=== PATIENT | female | born 1990 | race Caucasian/White ===

== ENCOUNTER 2016-05-27 10:13 | Emergency (ER) | payer MEDICAID, OTHER ==
[~2016-05-27] VITALS: Ht 160 cm; Wt 83.3 kg
[~2016-05-27 10:13] MED LIST: CHOL500014 PO; METF10002 PO; OXYC-302 PO
[2016-05-27] MEDS ORDERED: SODIUM CHLORIDE 0.9% 1,000 ML IV ONE (10:34)
[2016-05-27] MEDS ORDERED: LORazepam 2 MG/ML, 1ML ONE (10:44)
[2016-05-27] MEDS ORDERED: SODIUM CHLORIDE 0.9% 1,000ML IVBOLUS ONE (11:00)
[2016-05-27] MEDS ORDERED: LORazepam 2 MG/ML, 1ML IVPush ONE (11:00)
[2016-05-27 11:11] LABS: HEMOGLOBIN 15.3 g/dL (11.7-16.4)
[2016-05-27 11:23] LABS: BLOOD UREA NITROGEN 9 mg/dL (7-18)
[2016-05-27 12:11] VITALS: BP 111/50
== END 2016-05-27 12:14 | disposition home or self-care (01) ==
LOC: ED 11:50
DX: R56.9 Unspecified convulsions (principal)
CPT/HCPCS: 36415; 70450; 80048; 82040; 82550; 85025; 93005; 96361; 96374; 99285; J2060; J7030

== ENCOUNTER 2016-12-04 10:41 | Emergency (ER) | payer MEDICAID ==
[~2016-12-04] VITALS: Ht 160 cm; Wt 80.0 kg
[~2016-12-04 10:41] MED LIST changes: -CHOL500014 PO; +CHOL500045 PO
[2016-12-04] MEDS ORDERED: SODIUM CHLORIDE 0.9% 1,000 ML IV ONE (11:11)
[2016-12-04] MEDS ORDERED: ONDANSETRON 2MG/ML, 2ML ONE (11:22)
[2016-12-04] MEDS ORDERED: SODIUM CHLORIDE 0.9% 1,000ML IVBOLUS ONE (11:30)
[2016-12-04] MEDS ORDERED: SODIUM CHLORIDE FLUSH 10ML SYR IVF ONE (11:30)
[2016-12-04] MEDS ORDERED: ONDANSETRON 2MG/ML, 2ML IVPush ONE (11:30)
[2016-12-04 11:44] LABS: HEMATOCRIT 41.6 % (34.6-47.8); HEMOGLOBIN 14.3 g/dL (11.7-16.4); WHITE BLOOD COUNT 4.2 x10^3/uL (3.4-10)
[2016-12-04 11:47] LABS: RAPID INFLUENZA A Negative (Negative); RAPID INFLUENZA B Negative (Negative)
[2016-12-04 11:56] LABS: ASPARTATE AMINO TRANSFERASE 9 U/L (15-37); BLOOD UREA NITROGEN 10 mg/dL (7-18)
[2016-12-04 13:20] VITALS: BP 102/64
== END 2016-12-04 14:31 | disposition home or self-care (01) ==
LOC: ED 11:48
DX: J01.00 Acute maxillary sinusitis, unspecified (principal); N30.90 Cystitis, unspecified without hematuria; R11.2 Nausea with vomiting, unspecified; G43.909 Migraine, unspecified, not intractable, without status migrainosus
CPT/HCPCS: 36415; 71020; 80053; 81001; 84703; 85025; 87086; 87400; 96361; 96374; 99285; J2405; J7030

== ENCOUNTER 2016-12-12 13:28 | Emergency (ER) | payer MEDICAID ==
[~2016-12-12] VITALS: Ht 157.5 cm; Wt 80.7 kg
[2016-12-12] MEDS ORDERED: ETON68IM3 IMPLANT (14:03)
[2016-12-12 14:20] LABS: HEMATOCRIT 43.7 % (34.6-47.8); HEMOGLOBIN 14.9 g/dL (11.7-16.4); WHITE BLOOD COUNT 7.2 x10^3/uL (3.4-10)
[2016-12-12 14:33] LABS: BLOOD UREA NITROGEN 9 mg/dL (7-18)
[2016-12-12 15:18] VITALS: BP 100/63
== END 2016-12-12 15:21 | disposition home or self-care (01) ==
LOC: ED 15:15
DX: S46.911A Strain of unspecified muscle, fascia and tendon at shoulder and upper arm level, right arm, initial encounter (principal); G40.909 Epilepsy, unspecified, not intractable, without status epilepticus; G43.909 Migraine, unspecified, not intractable, without status migrainosus; W18.39XA Other fall on same level, initial encounter; Y93.G3 Activity, cooking and baking; Y92.000 Kitchen of unspecified non-institutional (private) residence as the place of occurrence of the external cause; Y99.8 Other external cause status
CPT/HCPCS: 36415; 72050; 80048; 82040; 85025; 99285

== ENCOUNTER 2016-12-27 09:35 | Emergency (ER) | payer MEDICAID ==
[~2016-12-27] VITALS: Ht 160 cm; Wt 78.8 kg
[~2016-12-27 09:35] MED LIST changes: +ETON68IM3 IMPLANT
[2016-12-27] MEDS ORDERED: LORazepam 2 MG/ML, 1ML IVPush ONE (10:30)
[2016-12-27] MEDS ORDERED: KETOROLAC 30 MG/1 ML IVPush ONE (10:30)
[2016-12-27] MEDS ORDERED: PROMETHAZINE 25 MG/ML, 1ML IM ONE (10:30)
[2016-12-27] MEDS ORDERED: DIPHENHYDRAMINE 50 MG/ML, 1ML IVPush ONE (10:30)
[2016-12-27] MEDS ORDERED: DIPHENHYDRAMINE 50 MG/ML, 1ML ONE (10:52)
[2016-12-27] MEDS ORDERED: PROMETHAZINE 25 MG/ML, 1ML ONE (10:52)
[2016-12-27] MEDS ORDERED: KETOROLAC 30 MG/1 ML ONE (10:52)
[2016-12-27] MEDS ORDERED: LORazepam 2 MG/ML, 1ML ONE (10:54)
[2016-12-27 11:17] LABS: HEMATOCRIT 43.6 % (34.6-47.8); HEMOGLOBIN 14.9 g/dL (11.7-16.4); WHITE BLOOD COUNT 6.9 x10^3/uL (3.4-10)
[2016-12-27 11:31] LABS: ASPARTATE AMINO TRANSFERASE 14 U/L (15-37); BLOOD UREA NITROGEN 7 mg/dL (7-18)
[2016-12-27 11:40] LABS: HCG UR LOT HCG7030192
[2016-12-27 11:46] LABS: HCG UR OBC PASS
[2016-12-27 13:20] VITALS: BP 132/68
== END 2016-12-27 13:23 | disposition home or self-care (01) ==
LOC: ED 10:34
DX: G40.909 Epilepsy, unspecified, not intractable, without status epilepticus (principal); G43.909 Migraine, unspecified, not intractable, without status migrainosus; Z90.49 Acquired absence of other specified parts of digestive tract
CPT/HCPCS: 36415; 80053; 81001; 81025; 85025; 87086; 96372; 96374; 96375; 99284; J1200; J1885; J2060; J2550

== ENCOUNTER 2017-01-15 19:06 | Emergency (ER) | payer MEDICAID ==
[~2017-01-15] VITALS: Ht 160 cm; Wt 78.5 kg
[~2017-01-15 19:06] MED LIST changes: +LEVE100S6 PO
[2017-01-15 19:31] LABS: HEMATOCRIT 44.7 % (34.6-47.8); HEMOGLOBIN 15.3 g/dL (11.7-16.4); WHITE BLOOD COUNT 7.3 x10^3/uL (3.4-10)
[2017-01-15 19:40] LABS: BLOOD UREA NITROGEN 11 mg/dL (7-18)
[2017-01-15 20:53] VITALS: BP 102/64
== END 2017-01-15 20:55 | disposition home or self-care (01) ==
LOC: ED 20:36
DX: R19.7 Diarrhea, unspecified (principal); G43.909 Migraine, unspecified, not intractable, without status migrainosus
CPT/HCPCS: 36415; 72110; 80048; 82040; 85025; 99285

== ENCOUNTER → 2017-01-31 | Outpatient (CLI) | payer MEDICAID | END | disposition home or self-care (01) | LOC: CFH 08:46 | PROVIDERS: ATTEND Family Medicine | DX: Z32.02 Encounter for pregnancy test, result negative (principal); R10.9 Unspecified abdominal pain | CPT/HCPCS: 76830 ==

== ENCOUNTER 2017-12-16 22:08 | Emergency (ER) | payer MEDICAID ==
[~2017-12-16] VITALS: Ht 160 cm; Wt 70.0 kg
[2017-12-16] MEDS ORDERED: LORazepam 2 MG/ML, 1ML IVPush ONE (22:30)
[2017-12-16] MEDS ORDERED: SODIUM CHLORIDE FLUSH 10ML SYR IVF ONE (22:30)
[2017-12-16] MEDS ORDERED: LORazepam 2 MG/ML, 1ML ONE (22:39)
[2017-12-16 22:44] LABS: BASOPHILS # (AUTO) 0.02 x10^3/uL (0-0.1); BASOPHILS % (AUTO) 0 % (0-1); EOSINOPHILS # (AUTO) 0.06 x10^3/uL (0-0.4); EOSINOPHILS % (AUTO) 1 % (1-7); LYMPHOCYTES # (AUTO) 1.71 x10^3/uL (1-3.4); LYMPHOCYTES % (AUTO) 17 % (22-44); MD NO; MEAN CORPUSCULAR HEMOGLOBIN 32.7 pg (27.0-34.8); MEAN CORPUSCULAR HGB CONC 34.3 g/dL (32.4-35.8); MEAN CORPUSCULAR VOLUME 95.3 fL (80-100); MEAN PLATELET VOLUME 8.2 fL (7.4-10.4); MONOCYTES # (AUTO) 0.69 x10^3/uL (0.2-0.8); MONOCYTES % (AUTO) 7 % (2-9); NEUTROPHILS # (AUTO) 7.48 x10^3/uL (1.8-6.8); NEUTROPHILS % (AUTO) 75 % (42-75); PLATELET COUNT 292 x10^3/uL (130-400); RED BLOOD COUNT 4.63 x10^6/uL (3.82-5.3); RED CELL DISTRIBUTION WIDTH 12.7 % (9.6-15.2)
[2017-12-16 22:55] LABS: ALANINE AMINOTRANSFERASE 24 U/L (12-78); ALBUMIN 3.8 g/dL (3.4-5.0); ANION GAP 6 mmol/L (5-15); CALCIUM 8.6 mg/dL (8.5-10.1); CHLORIDE 109 mmol/L (98-107); CREATININE 0.69 mg/dL (0.55-1.02)
[2017-12-16 22:59] LABS: ALKALINE PHOSPHATASE 69 U/L (45-117); BILIRUBIN,TOTAL 0.5 mg/dL (0.2-1.0); TOTAL PROTEIN 7.1 g/dL (6.4-8.2)
[2017-12-16 23:39] VITALS: BP 117/62
[2017-12-16 23:46] LABS: MICROSCOPIC NOT IND
[2017-12-16 23:53] LABS: CULTURE INDICATED? NO
== END 2017-12-16 23:53 | disposition home or self-care (01) ==
LOC: ED 23:20
DX: G40.209 Localization-related (focal) (partial) symptomatic epilepsy and epileptic syndromes with complex partial seizures, not intractable, without status epilepticus (principal)
CPT/HCPCS: 36415; 80053; 81003; 84703; 85025; 96374; 99284; J2060

== ENCOUNTER 2017-12-19 12:21 | Emergency (ER) | payer MEDICAID ==
[~2017-12-19] VITALS: Ht 160 cm; Wt 67.0 kg
[2017-12-19] MEDS ORDERED: KETOROLAC 30 MG/1 ML IVPush ONE (13:00)
[2017-12-19] MEDS ORDERED: SODIUM CHLORIDE 0.9% 1,000ML IVBOLUS ONE (13:00)
[2017-12-19] MEDS ORDERED: DIPHENHYDRAMINE 50 MG/ML, 1ML IVPush ONE (13:00)
[2017-12-19] MEDS ORDERED: METOCLOPRAMIDE 5 MG/ML, 2ML IVPush ONE (13:00)
[2017-12-19] MEDS ORDERED: SODIUM CHLORIDE FLUSH 10ML SYR IVF ONE (13:00)
[2017-12-19] MEDS ORDERED: DIPHENHYDRAMINE 50 MG/ML, 1ML ONE (13:04)
[2017-12-19] MEDS ORDERED: KETOROLAC 30 MG/1 ML ONE (13:04)
[2017-12-19] MEDS ORDERED: METOCLOPRAMIDE 5 MG/ML, 2ML ONE (13:04)
[2017-12-19 13:10] LABS: BASOPHILS # (AUTO) 0.01 x10^3/uL (0-0.1); BASOPHILS % (AUTO) 0 % (0-1); EOSINOPHILS # (AUTO) 0.14 x10^3/uL (0-0.4); EOSINOPHILS % (AUTO) 2 % (1-7); LYMPHOCYTES # (AUTO) 1.43 x10^3/uL (1-3.4); LYMPHOCYTES % (AUTO) 19 % (22-44); MD NO; MEAN CORPUSCULAR HEMOGLOBIN 33.1 pg (27.0-34.8); MEAN CORPUSCULAR HGB CONC 34.7 g/dL (32.4-35.8); MEAN CORPUSCULAR VOLUME 95.3 fL (80-100); MEAN PLATELET VOLUME 8.1 fL (7.4-10.4); MONOCYTES % (AUTO) 5 % (2-9); NEUTROPHILS # (AUTO) 5.42 x10^3/uL (1.8-6.8); NEUTROPHILS % (AUTO) 73 % (42-75); PLATELET COUNT 265 x10^3/uL (130-400); RED BLOOD COUNT 4.61 x10^6/uL (3.82-5.3); RED CELL DISTRIBUTION WIDTH 12.4 % (9.6-15.2)
[2017-12-19 13:13] LABS: HCG UR SG 1.019 (1.003-1.030)
[2017-12-19 13:15] LABS: CULTURE INDICATED? YES; MICROSCOPIC INDICATED
[2017-12-19 13:18] LABS: ALBUMIN 3.7 g/dL (3.4-5.0); ANION GAP 7 mmol/L (5-15); CALCIUM 8.4 mg/dL (8.5-10.1); CHLORIDE 112 mmol/L (98-107); CREATININE 0.81 mg/dL (0.55-1.02)
[2017-12-19 14:11] VITALS: BP 100/60
== END 2017-12-19 14:49 | disposition home or self-care (01) ==
LOC: ED 14:25
DX: G43.901 Migraine, unspecified, not intractable, with status migrainosus (principal); F32.9 Major depressive disorder, single episode, unspecified; F41.1 Generalized anxiety disorder; G40.909 Epilepsy, unspecified, not intractable, without status epilepticus; Z90.49 Acquired absence of other specified parts of digestive tract; Z87.891 Personal history of nicotine dependence
CPT/HCPCS: 36415; 80048; 81001; 81025; 82040; 85025; 87086; 96374; 96375; 99284; J1200; J1885; J2765; J7030; 96361

== ENCOUNTER 2018-10-14 20:35 | Emergency (ER) | payer MEDICAID ==
[~2018-10-14] VITALS: Ht 162.6 cm; Wt 76.0 kg
[2018-10-14 23:32] VITALS: BP 96/49
== END 2018-10-14 23:37 | disposition home or self-care (01) ==
LOC: ED 23:00
DX: G40.309 Generalized idiopathic epilepsy and epileptic syndromes, not intractable, without status epilepticus (principal); R55 Syncope and collapse; G43.909 Migraine, unspecified, not intractable, without status migrainosus
CPT/HCPCS: 36415; 80048; 82040; 84703; 85025; 93005; 96374; 99284; J1885